=== PATIENT | male | born 1985 | race African-American/Black ===

== ENCOUNTER 2024-11-06 10:02 | Emergency (ER) | payer BC ==
[2024-11-06 10:50] LABS: Absolute Lymphocytes (CBC) 1.3 K/uL (0.7-4.9); Hematocrit 41.3 % (39.6-49.0); Hemoglobin 13.5 g/dL (13.6-17.9); MCH 27.2 pg (27.0-35.0); MCHC 32.7 g/dL (32.0-36.0); MCV 83.3 fL (80-100); MPV 7.5 fL (7.6-11.3); Nucleated RBC Absolute Count 0.0 (0-0); Nucleated Red Blood Cells % 0.0 % (0-0); RBC Red Blood Cell Count 4.96 M/uL (4.33-5.43); White Blood Count 5.50 thou/uL (4.3-10.9)
--- NOTE | 2024-11-06 11:00 | RAD REPORT ---
EXAMINATION: ONE VIEW CHEST XR CLINICAL INDICATION: syncope TECHNIQUE: Frontal chest projection is submitted. Examination is limited by patient positioning and t echnique. COMPARISON: No prior exam. FINDINGS: Mild bilateral interstitial lung opacities could indicate mild interstitial edema, bronchitis or reac tive airway disease. The heart is upper limit of normal in size. No displaced fractures identified.
[2024-11-06 11:01] LABS: PT Prothrombin Time 12.0 SECONDS (10-13.0); PTT, Activated Partial Thromb 25.5 SECONDS (27.2-37.4); Protime INR 1.06
--- NOTE | 2024-11-06 11:11 | RAD REPORT ---
EXAM: CT brain without contrast HISTORY: SYNCOPE COMPARISON: None TECHNIQUE: Multiple contiguous axial images were obtained and a CT of the brain without contrast. Sag ittal and coronal reformats were performed. One or more of the following dose reduction techniques were used: Automated exposure control, adjust ment of the mA and/or kV according to patient size, and/or iterative reconstruction. FINDINGS: No evidence of hydrocephalus, intracranial hemorrhage, or extra-axial fluid collection. The brain is normal in morphology. No evidence of midline shift or areas of brain edema. The calvarium is intact. The visualized paranasal sinuses and mastoid air cells are essentially clear except for mild fluid in the sphenoid. IMPRESSION: No evidence of acute intracranial abnormality.
[2024-11-06 11:13] LABS: ALT/SGPT 75 U/L (16-61); AST/SGOT 29 U/L (15-37); Albumin 3.9 g/dL (3.4-5.0); Albumin/Globulin Ratio 1.0 (1.1-1.8); Alkaline Phosphatase 70 U/L (45-117); Anion Gap 11.7 mEq/L (5.0-15.0); BUN Blood Urea Nitrogen 14 mg/dL (7-18); Globulin 3.9 g/dL (2.3-3.5); Glucose Level 104 mg/dL (74-106); Magnesium 2.1 mg/dL (1.6-2.4); Potassium 3.7 mEq/L (3.5-5.1); Troponin High Sensitivity 17.5 pg/mL (<58.9)
[2024-11-06 11:15] LABS: Bilirubin Indirect, Calculated 0.1 mg/dL (0.2-0.8)
--- NOTE | 2024-11-06 11:36 | EDPHYS ---
Physician Documentation [facility] Name: Aldo Mallory Age: 39 yrs Sex: Male : 1985 Arrival Date: 11/06/2024 Time: 10:02 Bed 19 Private MD: ED Physician Josue Garg HPI: 11/06 10:06 This 39 yrs old Male presents to ER via EMS with complaints of Syncope. sb4 10:06 Patient presents via EMS after 2 syncopal episodes this morning while in a class. sb4 States that he was at rest while this happened. EMS states that he did lose bowel control on the second episode. Patient states he was feeling completely fine this morning. States he had a similar episode of this about 6 months ago, went to another ER, had a full workup done that was negative. Has not followed up with anyone. States his only medical history is hypertension, hyperlipidemia, anxiety which he reports compliance with. No recent changes in medications. Historical: - Allergies: 10:06 No Known Allergies; bp - PMHx: 10:06 Hypertensive disorder; Anxiety; bp - Immunization history:: Adult Immunizations up to date. - Infectious Disease History:: Denies. - Social history:: Smoking status: Patient denies any tobacco usage or history of. ROS: 10:07 Constitutional: Negative for fever, chills, and weight loss, sb4 10:07 Neuro: Positive for syncope, Exam: 10:07 Constitutional: This is a well developed, well nourished patient who is awake, alert, sb4 and in no acute distress. Head/Face: Normocephalic, atraumatic. Eyes: Extra-ocular motions intact. Periorbital areas with no swelling, redness, or edema. ENT: Mucous membranes moist. Cardiovascular: Regular rate and rhythm with a normal S1 and S2. Respiratory: No increased work of breathing, no retractions or nasal flaring. Abdomen/GI: Soft, non-tender, no distension. Skin: Warm, dry with normal turgor. Normal color with no rashes, no lesions, and no evidence of cellulitis. MS/ Extremity: Pulses equal, no cyanosis. Neurovascular intact. Full, normal range of motion. Neuro: Awake and alert, GCS 15, oriented to person, place, time, and situation. Motor strength 5/5 in all extremities. Sensory grossly intact. Vital Signs: 10:05 BP 118 / 82; Pulse 86; Resp 16; Temp 98; Pulse Ox 99% ; bp 12:23 BP 126 / 75; Pulse 85; Resp 15; Pulse Ox 96% ; bp MDM: 10:04 Medical Screening Exam initiated sb4 10:05 Medical Screening Exam initiated sb4 11:38 Differential Diagnosis: cardiac arrhythmia, drug effect, emotional response, pseudo sb4 seizure, vasovagal episode. ECG was reviewed by the Attending Physician. Data reviewed: vital signs, nurses notes, EMS record, EKG, radiologic studies, and as a result, I will discharge patient. Consideration of Admission/Observation Escalation of care including admission/observation considered. Historians other than the Patient: Spouse/Significant Other: . 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 ED course: Patient with 2 unexplained syncopal episodes. His workup was unremarkable. He is feeling normal. He states that he was feeling very anxious prior. Offered admission for further workup but he prefers to go home and follow-up outpatient at that time. I think this is reasonable. Will discharge at this time with copy of all results. 11/06 10:04 Order name: Basic Metabolic Panel; Complete Time: 11:15 11/06 10:04 Order name: CBC with Diff; Complete Time: 10:54 [facility] 11/06 10:04 Order name: Hepatic Function; Complete Time: 11:15 11/06 10:04 Order name: Magnesium; Complete Time: 11:15 11/06 10:04 Order name: Protime (+inr); Complete Time: 11:10 11/06 10:04 Order name: Ptt, Activated; Complete Time: 11:10 11/06 10:04 Order name: Troponin High Sensitivity; Complete Time: 11:15 [facility] 11/06 10:07 Order name: ETOH Level; Complete Time: 11:16 [facility] 11/06 10:04 Order name: CT Head Brain wo Cont; Complete Time: 11:12 11/06 10:04 Order name: Chest Single View XRAY; Complete Time: 11:10 sb4 11/06 10:04 Order name: EKG; Complete Time: 10: sb4 11/06 10:04 Order name: Cardiac monitoring; Complete Time: sb4 11/06 10:04 Order name: EKG - Nurse/Tech; Complete Time: 10:29 sb4 11/06 10:04 Order name: IV Saline Lock; Complete Time: sb4 11/06 10:04 Order name: Labs collected and sent; Complete Time: sb4 11/06 10:04 Order name: O2 Per Protocol; Complete Time: sb4 11/06 10:04 Order name: O2 Sat Monitoring; Complete Time: sb4 11/06 10:04 Order name: Orthostatics; Complete Time: : sb4 EC:39 Rate is 83 beats/min. Rhythm is regular, Normal Sinus Rhythm. ID interval is normal at sb4 176 msec. QRS interval is normal at 84 msec. QT interval is normal at 348 msec. No Q waves. T waves are Normal. No ST changes noted. Administered Medications: 10:15 Drug: NS 0.9% IV 1000 ml IV at 1000 ml once; to be given as a bolus over 60 minutes bp Route: IV; Rate: 1000 ml; Site: right antecubital; 12:24 Follow up: IV Status: Completed infusion bp Disposition Summary: 11/06/24 11:36 Discharge Ordered Notes: Location: Home sb4 Problem: new sb4 Symptoms: have improved sb4 Condition: Stable sb4 Diagnosis - Syncope sb4 - Anxiety disorder, unspecified sb4 Followup: sb4 - With: Private Physician - When: 1 week - Reason: Further diagnostic work-up, Recheck today's complaints, Re-evaluation by your physician Discharge Instructions: - Discharge Summary Sheet sb4 - Syncope, [id number] sb4 - Managing Anxiety, Adult sb4 Forms: - Work release form iw - Patient Portal Instructions sb4 - Leadership Thank You Letter sb4 Signatures: Dispatcher [employer] Chaim Gould RN RN Itzel Shelley PA-C PA-C sb4
--- NOTE | 2024-11-06 11:36 | ER ---
Nurse's Notes [facility] Name: Aldo Mallory Age: 39 yrs Sex: Male : 1985 Arrival Date: 11/06/2024 Time: 10:02 Bed 19 Private MD: Diagnosis: Syncope;Anxiety disorder, unspecified Presentation: 11/06 10:05 Chief complaint: EMS states: SYNCOPAL EPISODE DURING [employer]KL[employer] CLASS. Coronavirus bp screen: At this time, the client does not indicate any symptoms associated with coronavirus-19. Ebola Screen: No symptoms or risks identified at this time. Initial Sepsis Screen: Does the patient meet any 2 criteria? No. Patient's initial sepsis screen is negative. Does the patient have a suspected source of infection? No. Patient's initial sepsis screen is negative. Risk Assessment: Do you want to hurt yourself or someone else? Patient reports no desire to harm self or others. Onset of symptoms was November 06, 2024. 10:05 Method Of Arrival: EMS: [facility] bp 10:05 Acuity: EMERSON 3 bp Triage Assessment: 10:06 General: Appears in no apparent distress. Behavior is cooperative, appropriate for age, bp anxious. Pain: Denies pain. EENT: No deficits noted. Neuro: Reports a syncopal episode. Cardiovascular: Rhythm is sinus rhythm. Respiratory: No deficits noted. GI: No signs and/or symptoms were reported involving the gastrointestinal system. : No signs and/or symptoms were reported regarding the genitourinary system. Derm: No deficits noted. Musculoskeletal: No deficits noted. Historical: - Allergies: 10:06 No Known Allergies; bp - PMHx: 10:06 Hypertensive disorder; Anxiety; bp - Immunization history:: Adult Immunizations up to date. - Infectious Disease History:: Denies. - Social history:: Smoking status: Patient denies any tobacco usage or history of. Screenin:23 [facility] ED Fall Risk Assessment (Adult) History of falling in the last 3 months, bp including since admission Yes- single mechanical fall (1 pt) Confusion or Disorientation No (0 pts) Intoxicated or Sedated No (0 pts) Impaired Gait No (0 pts) Mobility Assist Device Used No (0 pt) Altered Elimination No (0 pt) Score/Fall Risk Level 0 - 2 = Low Risk Oriented to surroundings. Abuse screen: Denies threats or abuse. Denies injuries from another. Nutritional screening: No deficits noted. Tuberculosis screening: No symptoms or risk factors identified. Assessment: 10:05 General: SEE TRIAGE NOTE. bp 12:23 Neuro: Level of Consciousness is awake, alert, obeys commands, Oriented to Appropriate bp for age. Cardiovascular: No deficits noted. Vital Signs: 10:05 BP 118 / 82; Pulse 86; Resp 16; Temp 98; Pulse Ox 99% ; bp 12:23 BP 126 / 75; Pulse 85; Resp 15; Pulse Ox 96% ; bp ED Course: 10:04 Patient arrived in ED. sb4 10:04 Itzel Morales PA-C is PHCP. sb4 10:04 Josue Garg MD is Attending Physician. sb4 10:05 Chaim Dean, RN is Primary Nurse. bp 10:06 Triage completed. bp 10:06 Arm band placed on. bp 10:24 CT Head Brain wo Cont In Process Unspecified. EDMS 10:29 EKG done, by ED staff, reviewed by Itzel Morales PA-C. em1 10:30 Inserted saline lock: 20 gauge in right antecubital area, using aseptic technique. bp Blood collected. Flushed with 10 mL NS. 10:30 Initial lab(s) drawn, by me, sent to lab. bp 10:57 Chest Single View XRAY In Process Unspecified. EDMS 12:23 Patient has correct armband on for positive identification. bp 12:23 No provider procedures requiring assistance completed. IV discontinued, intact, bp bleeding controlled, No redness/swelling at site. Pressure dressing applied. Administered Medications: 10:15 Drug: NS 0.9% IV 1000 ml IV at 1000 ml once; to be given as a bolus over 60 minutes bp Route: IV; Rate: 1000 ml; Site: right antecubital; 12:24 Follow up: IV Status: Completed infusion bp Medication: 12:23 VIS not applicable for this client. bp Outcome: 11:36 Discharge ordered by . sb4 12:23 Discharged to home ambulatory, with family, bp 12:23 Condition: stable 12:23 Discharge instructions given to patient, Instructed on discharge instructions, follow up and referral plans. Demonstrated understanding of instructions, follow-up care, 12:25 Patient left the ED. bp Signatures: Dispatcher [employer] EDMS Oswaldo Sosa em1 Chaim Dean, RN RN bp Itzel Morales, PA-C PA-C sb4
[2024-11-06 12:37] VITALS: TEMP 98
[2024-11-06 12:57] VITALS: BP 126/75; O2SAT 96
== END 2024-11-06 12:25 | disposition home or self-care (01) ==
LOC: ER 10:02
DX: R55 Syncope and collapse (principal); F41.9 Anxiety disorder, unspecified; I10 Essential (primary) hypertension
CPT/HCPCS: 36415; 70450; 71045; 80048; 80076; 82077; 83735; 84484; 85025; 85610; 85730; 93005; 96360; 96361; 99284